=== PATIENT | female | born 1985 | race Caucasian/White ===

== ENCOUNTER 2018-05-17 02:31 | Emergency (ER) | payer OTHER ==
[~2018-05-17] VITALS: Ht 172.7 cm; Wt 75.0 kg
[2018-05-17 02:35] VITALS: Ht 172.7 cm; Wt 75.0 kg
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
[2018-05-17 02:58] VITALS: BP 129/89; PULSE 101; RESP 18
[2018-05-17] MEDS ORDERED: ALPRAZOLAM 0.25 MG TAB PO ONE (03:00)
[2018-05-17] MEDS ORDERED: IBUPROFEN 600 MG TAB PO ONE (03:00)
== END 2018-05-17 03:16 | disposition home or self-care (01) ==
LOC: E/R 02:31
DX: F41.9 Anxiety disorder, unspecified (principal)
CPT/HCPCS: 99283